=== PATIENT | male | born 2000 | race Two or more races ===

== ENCOUNTER 2024-05-04 10:32 | Emergency (ER) | payer OTHER ==
[~2024-05-04] VITALS: Ht 180.3 cm; Wt 81.6 kg
[2024-05-04] MEDS ORDERED: LIDOCAINE HCL 1% 20 ML VIAL ONE (11:40)
[2024-05-04] MEDS ORDERED: TDAP DIPH,PERTUSS,TET VAC/PF 0.5 ML DISP.SYRIN IM ONE (12:21)
[2024-05-04] MEDS: LIDOCAINE HCL 1% 20 ML VIAL IJ ONE (12:22)
[2024-05-04] MEDS: TDAP DIPH,PERTUSS,TET VAC/PF 0.5 ML DISP.SYRIN IM ONE (12:23)
[2024-05-04] MEDS ORDERED: NEOMY/BACITRA/POLYMYXIN B OINT UD PACKET TP ONE (12:33)
[2024-05-04] MEDS: NEOMY/BACITRA/POLYMYXIN B OINT UD PACKET TP ONE (12:41)
[2024-05-04 12:59] VITALS: BP 122/89; TEMP 97.1; O2SAT 99
== END 2024-05-04 12:50 | disposition home or self-care (01) ==
LOC: ER 10:32
DX: S51.012A Laceration without foreign body of left elbow, initial encounter (principal); Z60.2 Problems related to living alone; W26.8XXA Contact with other sharp object(s), not elsewhere classified, initial encounter; Y93.89 Activity, other specified; Y92.89 Other specified places as the place of occurrence of the external cause; Y99.8 Other external cause status
CPT/HCPCS: 12002; 90471; 90715; 99283; J3490; A4606; A4663